=== PATIENT | male | born 1960 | race Caucasian/White ===

== ENCOUNTER 2017-03-09 15:23 | Day surgery (SDC) | payer BC, OTHER ==
[2017-03-09] MEDS ORDERED: MIDAZOLAM 2 MG/2 ML INJ ONE (15:40)
[2017-03-09] MEDS ORDERED: NALOXONE HCL INJ/PF 0.4 MG/1 ML SDV ONE (15:40)
[2017-03-09] MEDS ORDERED: GLUCAGON,HUMAN RECOMB 1 MG INJ ONE (15:41)
[2017-03-09] MEDS ORDERED: EPINEPHRINE INJ 1 MG/10 ML DISP.SYRIN ONE (15:41)
[2017-03-09] MEDS ORDERED: FLUMAZENIL INJ 0.5 MG/5 ML VIAL IV ONE (15:41)
[2017-03-09] MEDS ORDERED: FENTANYL CITRATE INJ/PF 100 MCG/2 ML AMPUL ONE (15:41)
[2017-03-09] MEDS: MIDAZOLAM 2 MG/2 ML INJ ONE ×2 (16:06→16:10)
--- NOTE | 2017-03-09 16:26 | Operative Report ---
Operative Report DATE OF SURGERY: 03/09/17 Operative Report: Pre-op diagnosis: Reflux disease Post-op diagnosis: Esophageal ring and hiatal hernia Surgery: Esophagogastroduodenoscopy with biopsy Medications: Versed 3mg Fentanyl 100 mcg IV push Tissue removed: Antral biopsy for pathology Procedure: After informed consent obtained from patient, the throat was sprayed with Hurricane and conscious sedation was achieved. The upper endoscope was inserted into the esophagus under direct vision and advanced into the stomach. The duodenum was entered and examined to the second part. Endoscope was then slowly pulled out of the patient as the mucosa was examined into details. Patient tolerated procedure well. Findings Esophagus: There was a ring with minimum stenoses just above the small hiatal hernia. The ring was broken with the biopsy forceps Z-line at: 40 cm Antrum: Normal Body: Normal Fundus: Normal Duodenum first part: Normal Duodenum second part: Normal Plan: Await pathology. Continue pantoprazole OPERATION: .
--- NOTE | 2017-03-09 16:26 | PDOC DISCHARGE SUMMARY ---
Discharge Summary (SDC) - Discharge Final Diagnosis: Esophageal ring and hiatal hernia Date of Surgery: 03/09/17 Condition: Stable Treatment or Instructions: No new medications Discharge Diet: As Tolerated Discharge Activity: Activity As Tolerated Report the Following to Your Physician Immediately: Vomiting, Increase in Pain, Swelling, Warmth
[2017-03-09 17:24] VITALS: BP 140/89
== END 2017-03-09 17:20 | disposition home or self-care (01) ==
LOC: END 15:23
PROVIDERS: ATTEND Internal Medicine Gastroenterology
PROC: 0DB68ZX Excision of Stomach, Via Natural or Artificial Opening Endoscopic, Diagnostic (ICD-10-PCS; principal; 2017-03-09 15:30)
DX: K31.9 Disease of stomach and duodenum, unspecified (principal); K44.9 Diaphragmatic hernia without obstruction or gangrene; K22.2 Esophageal obstruction; K21.9 Gastro-esophageal reflux disease without esophagitis; I10 Essential (primary) hypertension; E11.9 Type 2 diabetes mellitus without complications
CPT/HCPCS: 43239; 82962; 88342 ×2; 88305 ×2; J2250; J3010; J0171; J1610; J2310; J3490

== ENCOUNTER → 2017-07-22 | Outpatient (CLI) | payer BC ==
--- NOTE | 2017-07-22 09:40 | RADIOLOGY REPORT (SQ) ---
EXAM DESCRIPTION: CT CHEST WITHOUT COMPLETED DATE/TIME: 07/22/2017 8:26 am REASON FOR STUDY: PULMONARY INFILTRATE (R91.8) R91.8 OTHER NONSPECIFIC ABNORMAL FINDING OF LUNG FIE LD COMPARISON: Chest film 12/15/2013 CT abdomen and pelvis [facility] 04/17/2009 TECHNIQUE: CT scan performed of the chest without intravenous contrast. Images reviewed with lung, soft tissue and bone windows. Reconstructed coronal and sagittal MPR images reviewed. All images st ored on PACS. All CT scanners at this facility use dose modulation, iterative reconstruction, and/or weight based d osing when appropriate to reduce radiation dose to as low as reasonably achievable (ALARA). [facility]: Dose Right [facility]: CareDose [facility]: Dose Right [facility]: Teradose 4D [facility]: Smart [employer] RADIATION DOSE: Up-to-date CT equipment and radiation dose reduction techniques were employed. CTDIv ol: 9.1 mGy. DLP: 376 mGy-cm. mGy. LIMITATIONS: No technical limitations. FINDINGS: LUNGS AND PLEURA: There is minimal lingular bandlike scarring on coronal image 34 through 38. A 6 mm focus of pleural thickening along the right minor fissure is present on axial image 60 and cor onal image 32, of doubtful clinical significance. No fluffy alveolar infiltrates worrisome for edema or pneumonia. No pleural effusions or pneumothorax. HILAR AND MEDIASTINAL STRUCTURES: No identified masses or abnormal nodes. No obvious aneurysm. HEART AND VASCULAR STRUCTURES: No aneurysm. No pericardial effusion. UPPER ABDOMEN: Multiple tiny less than 1 cm cysts are present in the liver, unchanged from CT 04/17/20 09 THYROID AND OTHER SOFT TISSUES: No masses. No adenopathy. BONES: No significant finding. HARDWARE: None in the chest. OTHER: No other significant findings. IMPRESSION: NO SIGNIFICANT FINDING ON NON-CONTRASTED CHEST CT. TECHNICAL DOCUMENTATION: JOB ID: [id number] Quality ID # [id number]: Final reports with documentation of one or more dose reduction techniques (e.g., Au tomated exposure control, adjustment of the mA and/or kV according to patient size, use of iterative reconstruction technique) 2010 [employer]- All Rights Reserved
== END ==
LOC: RAD 08:15
PROVIDERS: ATTEND Internal Medicine Critical Care Medicine
DX: K20.9 Esophagitis, unspecified (principal); Z98.84 Bariatric surgery status; R91.8 Other nonspecific abnormal finding of lung field
CPT/HCPCS: 71250

== ENCOUNTER 2019-08-31 08:38 | Observation (INO) | payer BC, OTHER ==
[2019-08-31 09:11] LABS: ABSOLUTE BASOPHILS # (AUTO) 0.1 10^3/uL (0.0-0.2); ABSOLUTE EOSINOPHILS # (AUTO) 0.1 10^3/uL (0.0-0.6); ABSOLUTE LYMPHOCYTES (AUTO) 1.1 10^3/uL (0.5-4.7); ABSOLUTE MONOCYTES (AUTO) 0.7 10^3/uL (0.1-1.4); ABSOLUTE NEUT (AUTO) 4.6 10^3/uL (1.7-8.2); BASOPHILS % (AUTO) 1.2 % (0-2); EOSINOPHILS % (AUTO) 1.5 % (0-6); HEMOGLOBIN 15.8 g/dL (13.5-17.0); LYMPHOCYTES % (AUTO) 16.8 % (13-45); MEAN CORPUSCULAR HEMOGLOBIN 30.4 pg (27.0-33.4); MEAN CORPUSCULAR HGB CONC 33.5 g/dL (32.0-36.0); MEAN CORPUSCULAR VOLUME 91 fl (80-97); PLATELET COUNT 223 10^3/uL (150-450); RED CELL DISTRIBUTION WIDTH 14.2 % (11.5-14.0); SEGMENTED NEUTROPHILS % (AUTO) 69.5 % (42-78); TOTAL CELLS COUNTED % (AUTO) 100 %; WHITE BLOOD COUNT 6.7 10^3/uL (4.0-10.5)
[2019-08-31 09:17] LABS: ALBUMIN 4.5 g/dL (3.5-5.0); ALKALINE PHOSPHATASE 75 U/L (38-126); ANION GAP 10 (5-19); ASPARTATE AMINO TRANSFERASE 24 U/L (17-59); BILIRUBIN,DIRECT 0.1 mg/dL (0.0-0.4); BILIRUBIN,TOTAL 0.5 mg/dL (0.2-1.3); BLOOD UREA NITROGEN 15 mg/dL (7-20); CALCIUM 9.9 mg/dL (8.4-10.2); CARBON DIOXIDE 25 mmol/L (22-30); CHLORIDE 101 mmol/L (98-107); CREATINE KINASE 102 U/L (55-170); GLUCOSE 106 mg/dL (75-110); POTASSIUM 4.5 mmol/L (3.6-5.0); TOTAL PROTEIN 7.6 g/dL (6.3-8.2)
[2019-08-31 09:27] LABS: CREATINE KINASE MB 1.75 ng/mL (<4.55)
[2019-08-31 09:35] LABS: TROPONIN I < 0.012 ng/mL
--- NOTE | 2019-08-31 09:38 | ER Document Report ---
ED Cardiac - General Chief Complaint: Chest Pain Stated Complaint: CHEST PAIN Time Seen by Provider: 08/31/19 09:35 TRAVEL OUTSIDE OF THE [place] IN LAST 30 DAYS: No - HPI Notes: 59-year-old male presents with approximately 2-hour history of chest pain 6/10 squeezing in nature without radiation associated profound weakness and nausea. She denies shortness of breath. Patient still having chest pain at this time. Patient denies any history of coronary artery disease. Has been seen in the emergency department in the past for chest pain. Had a negative stress test about two year ago. - Related Data Allergies/Adverse Reactions: Shellfish * [Shellfish] Allergy (Verified 03/09/17 15:46) Hives Past Medical History - Social History Smoking Status: Current Every Day Smoker Frequency of alcohol use: None Drug Abuse: None Family History: CAD - Father had heart problems in his early 40s, 2 brothers have each had MIs starting at the age of 38. Patient has suicidal ideation: No Patient has homicidal ideation: No - Past Medical History Cardiac Medical History: Reports: Hx Hypertension Denies: Hx Coronary Artery Disease, Hx Heart Attack Pulmonary Medical History: Reports: Hx Pneumonia - HX Denies: Hx Asthma, Hx Bronchitis, Hx COPD, Hx Tuberculosis Neurological Medical History: Denies: Hx Cerebrovascular Accident, Hx Seizures Endocrine Medical History: Reports: Hx Diabetes Mellitus Type 2 GI Medical History: Reports: Hx Gastroesophageal Reflux Disease Musculoskeletal Medical History: Reports Hx Arthritis Psychiatric Medical History: Denies: Hx Depression - Immunizations Hx Diphtheria, Pertussis, Tetanus Vaccination: No Review of Systems - Review of Systems Notes: REVIEW OF SYSTEMS: CONSTITUTIONAL: -fevers, -chills EENT: -eye pain, -difficulty swallowing, -nasal congestion CARDIOVASCULAR: positive chest pain, -syncope. RESPIRATORY: -cough, -SOB GASTROINTESTINAL: -abdominal pain, -nausea, -vomiting, -diarrhea GENITOURINARY: -dysuria, -hematuria MUSCULOSKELETAL: -back pain, -neck pain SKIN: -rash or skin lesions. HEMATOLOGIC: -easy bruising or bleeding. LYMPHATIC: -swollen, enlarged glands. NEUROLOGICAL: -altered mental status or loss of consciousness, -headache, - neurologic symptoms PSYCHIATRIC: -anxiety, -depression. ALL OTHER SYSTEMS REVIEWED AND NEGATIVE. Physical Exam - Vital signs Vitals: Resp Pulse Ox 22 H 96 08/31/19 08:44 08/31/19 08:44 - Notes Notes: PHYSICAL EXAMINATION: GENERAL: Well-appearing, well-nourished and in no acute distress. HEAD: Atraumatic, normocephalic. EYES: Pupils equal round and reactive to light, extraocular movements intact, sclera anicteric, conjunctiva are normal. ENT: nares patent, oropharynx clear without exudates. Moist mucous membranes. NECK: Normal range of motion, supple without lymphadenopathy LUNGS: Breath sounds clear to auscultation bilaterally and equal. No wheezes rales or rhonchi. HEART: Regular rate and rhythm without murmurs ABDOMEN: Soft, nontender, normoactive bowel sounds. No guarding, no rebound. No masses appreciated. EXTREMITIES: Normal range of motion, no pitting or edema. No cyanosis. NEUROLOGICAL: Cranial nerves grossly intact. Normal speech, normal gait. Normal sensory and motor exams. PSYCH: Normal mood, normal affect. SKIN: Warm, Dry, normal turgor, no rashes or lesions noted. Course - Re-evaluation Re-evalutation: 08/31/19 09:47 59-year-old man presents with concerning story of chest pain. Patient initial lab work-up unremarkable times troponin negative. EKG is right bundle branch block but no ischemic changes. Patient given aspirin, nitroglycerin for his sym ptoms. Feeling improved at this time. Patient will be admitted to the hospital for further evaluation of chest pain. - Vital Signs Vital signs: Temp Pulse Resp BP Pulse Ox 98.4 F 65 18 109/65 95 08/31/19 15:31 08/31/19 15:31 08/31/19 15:31 08/31/19 15:31 08/31/19 15:31 - Laboratory Result Diagrams: 08/31/19 08:22 08/31/19 08:22 Laboratory results interpreted by me: 08/31/19 08/31/19 08:22 08:22 RDW 14.2 H Sodium 136.2 L - EKG Interpretation by Me Additional EKG results interpreted by me: 08/31/19 09:36 Normal sinus rhythm 89 bpm, normal MI, normal QRS, right bundle branch block, no ST elevations or depressions. Discharge - Discharge Clinical Impression: Chest pain Qualifiers: Chest pain type: unspecified Qualified Code(s): R07.9 - Chest pain, unspecified Condition: Stable Disposition: ADMITTED INPATIENT Admitting Provider: toma tay Unit Admitted: Telemetry
[2019-08-31] MEDS ORDERED: NITROGLYCERIN 0.4 MG/TAB 25 TAB/BOTTLE SL PRN ×2 (09:42→11:57)
[2019-08-31] MEDS ORDERED: ASPIRIN 81 MG TABLET, CHEWABLE PO ONE (09:42)
--- NOTE | 2019-08-31 10:35 | RADIOLOGY REPORT (SQ) ---
EXAM DESCRIPTION: CHEST 2 VIEWS COMPLETED DATE/TIME: 08/31/2019 10:06 am REASON FOR STUDY: chest pain COMPARISON: AP chest 12/15/2013 CT chest 07/22/2017 EXAM PARAMETERS: NUMBER OF VIEWS: two views TECHNIQUE: Digital Frontal and Lateral radiographic views of the chest acquired. RADIATION DOSE: NA LIMITATIONS: none FINDINGS: LUNGS AND PLEURA: No opacities, masses or pneumothorax. No pleural effusion. MEDIASTINUM AND HILAR STRUCTURES: No masses or contour abnormalities. HEART AND VASCULAR STRUCTURES: Heart normal size. No evidence for failure. BONES: No acute findings. HARDWARE: None in the chest. OTHER: No other significant finding. IMPRESSION: NO ACUTE RADIOGRAPHIC FINDING IN THE CHEST. TECHNICAL DOCUMENTATION: JOB ID: [id number] [email or web address]- All Rights Reserved Reading location - IP/workstation name: [email or web address]
[2019-08-31] MEDS ORDERED: ONDANSETRON HCL INJ/PF 4 MG/2 ML SDV IV PRN (11:57)
[2019-08-31] MEDS ORDERED: MAG HYDROX/AL HYDROX/SIMETH SUSP 30 ML UDCUP PO PRN (11:57)
[2019-08-31] MEDS ORDERED: DEXTROSE 50%-WATER 25 GM/50 ML DISP.SYRIN IV PRN ×2 (11:57)
[2019-08-31] MEDS ORDERED: ACETAMINOPHEN 325 MG TABLET PO PRN (11:57)
[2019-08-31] MEDS ORDERED: GLUCAGON,HUMAN RECOMB 1 MG INJ SUBCUT PRN (11:57)
[2019-08-31] MEDS ORDERED: DEXTROSE 40% GEL 15 GM TUBE PO PRN ×2 (11:57)
--- NOTE | 2019-08-31 13:06 | EKG REPORT ---
SEVERITY:- ABNORMAL ECG - SINUS RHYTHM RBBB AND LAFB LEFT VENTRICULAR HYPERTROPHY : Confirmed by: Owen Cardona MD 31-Aug-2019 13:05:22
--- NOTE | 2019-08-31 13:29 | PDOC H&P ---
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 Patient reports that he completed his shift and went home. After approximately 2 hours of discomfort, he called EMS and upon administration of nitroglycerin and aspirin felt immediate relief of his disc omfort. He does report that he had similar pain approximately 3 years ago when he underwent nuclear stress testing and cardiac catheterization at [facility]. He and his believe they were told that he did have vessel disease but did not require stents. 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 Evaluation in the emergency department reveals stable vital signs, normal CBC, n ormal chemistry, initial negative troponin, benign chest x-ray, and EKG demonstrating RBBB with LVH (unchanged from prior EKGs). He is referred to the hospitalist service for admission for chest pain rule out. Past Medical History Cardiac Medical History: Reports: Hyperlipidema, Hypertension Denies: Congestive Heart Failure, Coronary Artery Disease, Myocardial Infarction Pulmonary Medical History: Reports: Pneumonia Denies: Asthma, Bronchitis, Chronic Obstructive Pulmonary Disease (COPD), Tuberculosis EENT Medical History: Reports: None Neurological Medical History: Denies: Ischemic CVA, Seizures Endocrine Medical History: Reports: Diabetes Mellitus Type 2 Denies: Hypothyroidism Renal/ Medical History: Reports: None Malignancy Medical History: Reports: None GI Medical History: Reports: Gastroesophageal Reflux Disease Musculoskeltal Medical History: Reports: Arthritis Psychiatric Medical History: Reports: Tobacco Dependency Denies: Depression Hematology: Denies: Anemia Infectious Medical History: Reports: None Past Surgical History Past Surgical History: Reports: Cardiac Catheterization Social History Information Source: Patient Lives with: Spouse/Significant other Smoking Status: Current Every Day Smoker Cigarettes Packs Per Day: 1 Frequency of Alcohol Use: None Hx Recreational Drug Use: No Drugs: None Hx Prescription Drug Abuse: No - Advance Directive Resuscitation Status: Full Code Family History Family History: CAD - Father had heart problems in his early 40s, 2 brothers have each had MIs starting at the age of 38. Parental Family History Reviewed: Yes Children Family History Reviewed: Yes Sibling(s) Family History Reviewed.: Yes Medication/Allergy Home Medications: Hydrochlorothiazide [Hydrodiuril 25 mg Tablet] 25 mg PO DAILY 08/31/19 Metformin HCl [Glucophage 500 mg Tablet] 500 mg PO DAILY 08/31/19 Pantoprazole Sodium [Protonix [address] Tablet] 40 mg PO DAILY 08/31/19 Allergies/Adverse Reactions: Shellfish * [Shellfish] Allergy (Verified 03/09/17 15:46) Hives Review of Systems Constitutional: ABSENT: chills, fever(s), headache(s), weight gain, weight loss Eyes: ABSENT: visual disturbances Ears: ABSENT: hearing changes Cardiovascular: PRESENT: as per HPI, chest pain. ABSENT: dyspnea on exertion, edema, orthropnea, palpitations Respiratory: ABSENT: cough, hemoptysis Gastrointestinal: PRESENT: nausea. ABSENT: abdominal pain, constipation, diarrhea, hematemesis, hematochezia, vomiting Genitourinary: ABSENT: dysuria, hematuria Musculoskeletal: ABSENT: joint swelling Integumentary: ABSENT: rash, wounds Neurological: ABSENT: abnormal gait, abnormal speech, confusion, dizziness, focal weakness, syncope Psychiatric: ABSENT: anxiety, depression, homidical ideation, suicidal ideation Endocrine: ABSENT: cold intolerance, heat intolerance, polydipsia, polyuria Hematologic/Lymphatic: ABSENT: easy bleeding, easy bruising Physical Exam Vital Signs: Temp Pulse Resp BP Pulse Ox 98.1 F 20 116/77 93 08/31/19 08:46 08/31/19 09:01 08/31/19 09:01 08/31/19 09:10 Intake & Output 08/30/19 08/31/19 09/01/19 06:59 06:59 06:59 Weight 82.1 kg General appearance: PRESENT: no acute distress, cooperative, well-developed, well-nourished - overweight Head exam: PRESENT: atraumatic, normocephalic Eye exam: PRESENT: conjunctiva pink, EOMI, PERRLA. ABSENT: scleral icterus Ear exam: PRESENT: normal external ear exam Mouth exam: PRESENT: moist, tongue midline Neck exam: ABSENT: carotid bruit, JVD, lymphadenopathy, thyromegaly Respiratory exam: PRESENT: clear to auscultation yamila, symmetrical, unlabored. ABSENT: rales, rhonchi, wheezes Cardiovascular exam: PRESENT: RRR, +S1, +S2. ABSENT: diastolic murmur, rubs, systolic murmur Pulses: PRESENT: normal dorsalis pedis pul Vascular exam: PRESENT: normal capillary refill GI/Abdominal exam: PRESENT: normal bowel sounds, soft. ABSENT: distended, guarding, mass, organolmegaly, rebound, tenderness Rectal exam: PRESENT: deferred Extremities exam: PRESENT: full ROM. ABSENT: calf tenderness, clubbing, pedal edema Musculoskeletal exam: PRESENT: ambulatory Neurological exam: PRESENT: alert, awake, oriented to person, oriented to place, oriented to time, oriented to situation, CN II-XII grossly intact. ABSENT: motor sensory deficit Psychiatric exam: PRESENT: appropriate affect, normal mood. ABSENT: homicidal ideation, suicidal ideation Skin exam: PRESENT: dry, intact, warm. ABSENT: cyanosis, rash Results Laboratory Results: 08/31/19 08:22 08/31/19 08:22 08/31/19 08/31/19 08:22 08:22 WBC 6.7 RBC 5.20 Hgb 15.8 Hct 47.0 MCV 91 MCH 30.4 MCHC 33.5 RDW 14.2 H Plt Count 223 Seg Neutrophils % 69.5 Sodium 136.2 L Potassium 4.5 Chloride 101 Carbon Dioxide 25 Anion Gap 10 BUN 15 Creatinine 0.89 Est GFR ( Amer) > 60 Glucose 106 Calcium 9.9 Total Bilirubin 0.5 AST 24 Alkaline Phosphatase 75 Total Protein 7.6 Albumin 4.5 08/31/19 08/31/19 08:22 08:22 Creatine Kinase 102 CK-MB (CK-2) 1.75 Troponin I < 0.012 Impressions: Chest X-Ray 08/31/19 09:37 IMPRESSION: NO ACUTE RADIOGRAPHIC FINDING IN THE CHEST. Assessment and Plan - Diagnosis (1) Chest pain Qualifiers: Chest pain type: unspecified Qualified Code(s): R07.9 - Chest pain, unspecified Is this a current diagnosis for this admission?: Yes Plan: Patient presents w/ chest pain and multiple risk factors. Nuclear stress test and cardiac cath 3 years ago at [facility]; will request cath report. Chest x-ray is benign. EKG demonstrates RBBB with LVH; unchanged from prior EKGs. Initial troponin is negative. Patient is admitted to the medical floor and continuous cardiac telemetry. Continue daily aspirin and statin therapy. Full dose Lovenox. PPI We will continue to trend troponins. Check hemoglobin A1c and lipid panel with a.m. lab work. Nuclear stress test in the morning. Cardiac diet. (2) HTN (hypertension) Qualifiers: Hypertension type: essential hypertension Qualified Code(s): I10 - Essential (primary) hypertension Is this a current diagnosis for this admission?: Yes Plan: Continue home dose HCTZ. Cardiac diet. (3) HLD (hyperlipidemia) Is this a current diagnosis for this admission?: Yes Plan: Daily statin therapy. Check lipid panel w/ AM lab work. Cardiac diet. (4) Prediabetes Is this a current diagnosis for this admission?: Yes Plan: Patient reports pre-diabetic. Managed with Metformin. Holding oral antidiabetic medications while admitted. Accu-Cheks before meals and at bedtime with sliding scale insulin. Diabetic diet. We will check A1c with a.m. lab work. (5) Tobacco abuse Is this a current diagnosis for this admission?: Yes Plan: Smoking cessation encouraged. Nicotine replacement therapies provided. - Time Time Spent with patient: 35 or more minutes Smoking Cessation Education: 3 to 10 minutes Medications reviewed and adjusted accordingly: Yes Anticipated discharge: Home Within: within 24 hours
[2019-08-31] MEDS: INSULIN REG, HUMAN 100 UNIT/ML 3 ML VIAL (PYX) SUBCUT SCH ×2 (17:02→22:34)
[2019-08-31] MEDS ORDERED: ATORVASTATIN CALCIUM 80 MG TABLET PO SCH (22:00)
[2019-08-31] MEDS: ENOXAPARIN SODIUM INJ 100 MG/1 ML DISP.SYRIN SUBCUT SCH (22:38)
[2019-09-01 02:41] LABS: HEMATOCRIT 46.2 % (37.9-51.0); HEMOGLOBIN 15.4 g/dL (13.5-17.0); MEAN CORPUSCULAR HEMOGLOBIN 30.6 pg (27.0-33.4); MEAN CORPUSCULAR HGB CONC 33.4 g/dL (32.0-36.0); MEAN CORPUSCULAR VOLUME 92 fl (80-97); PLATELET COUNT 188 10^3/uL (150-450); RED BLOOD COUNT 5.05 10^6/uL (4.35-5.55); WHITE BLOOD COUNT 5.8 10^3/uL (4.0-10.5)
[2019-09-01 02:57] LABS: ANION GAP 7 (5-19); BLOOD UREA NITROGEN 20 mg/dL (7-20); CALCIUM 9.1 mg/dL (8.4-10.2); CARBON DIOXIDE 26 mmol/L (22-30); CHLORIDE 104 mmol/L (98-107); GLUCOSE 105 mg/dL (75-110); POTASSIUM 4.5 mmol/L (3.6-5.0)
[2019-09-01 05:21] LABS: CHOLESTEROL 143.89 mg/dL (0-200); TRIGLYCERIDES 71 mg/dL (<150)
[2019-09-01 05:33] LABS: DIRECT LDL 111 mg/dL (<100)
[2019-09-01] MEDS: INSULIN REG, HUMAN 100 UNIT/ML 3 ML VIAL (PYX) SUBCUT SCH ×2 (09:35→11:31)
[2019-09-01] MEDS ORDERED: PANTOPRAZOLE SODIUM 20 MG TABLET.DR PO SCH (10:00)
[2019-09-01] MEDS ORDERED: HYDROCHLOROTHIAZIDE 25 MG TABLET PO SCH (10:00)
[2019-09-01] MEDS ORDERED: NICOTINE 21 MG/24 HR PATCH.TD24 TD SCH (10:00)
[2019-09-01] MEDS ORDERED: PANTOPRAZOLE SODIUM 40 MG TABLET.DR PO SCH (10:00)
[2019-09-01] MEDS ORDERED: ASPIRIN 81 MG TABLET, ENT COATED PO SCH (10:00)
[2019-09-01] MEDS: ENOXAPARIN SODIUM INJ 100 MG/1 ML DISP.SYRIN SUBCUT SCH (10:21)
[2019-09-01] MEDS ORDERED: REGADENOSON INJ 0.4 MG/5 ML DISP.SYRIN IV ONE (12:20)
[2019-09-01 15:21] VITALS: BP 124/74
[2019-09-01 15:51] LABS: APPEARANCE,URINE CLEAR; BILIRUBIN,URINE NEGATIVE (NEGATIVE); COLOR,URINE YELLOW; GLUCOSE, URINE NEGATIVE (NEGATIVE); KETONES,URINE NEGATIVE (NEGATIVE); LEUKOCYTE ESTERASE,URINE NEGATIVE (NEGATIVE); NITRITE,URINE NEGATIVE (NEGATIVE); PROTEIN,URINE NEGATIVE (NEGATIVE); URINE SPECIFIC GRAVITY 1.021; UROBILINOGEN,URINE NEGATIVE mg/dL (<2.0)
--- NOTE | 2019-09-01 18:23 | PDOC DISCHARGE SUMMARY ---
Impression - Admit/DC Date/PCP Admission Date/Primary Care Provider: 08/31/19 10:08 TITA STEWARD PA-C Discharge Date: 09/01/19 - Discharge Diagnosis (1) Chest pain Is this a current diagnosis for this admission?: Yes (2) HTN (hypertension) Is this a current diagnosis for this admission?: Yes (3) HLD (hyperlipidemia) Is this a current diagnosis for this admission?: Yes (4) Prediabetes Is this a current diagnosis for this admission?: Yes (5) Tobacco abuse Is this a current diagnosis for this admission?: Yes - Additional Information Resuscitation Status: Full Code Discharge Diet: Cardiac, Diabetic Discharge Activity: Activity As Tolerated, Balance Activity w/Rest Referrals: MAGDA JOYCE [NO LOCAL MD] - 09/07/19 3:30 pm Prescriptions: Aspirin [Ecotrin 81 mg EC Tablet] 81 mg PO DAILY #90 tabec Nicotine [Nicoderm 21 mg/24 Hr Transderm Patch] 1 each TD DAILY #30 patch.td24 Home Medications: Hydrochlorothiazide [Hydrodiuril 25 mg Tablet] 25 mg PO DAILY 08/31/19 Metformin HCl [Glucophage 500 mg Tablet] 500 mg PO DAILY 08/31/19 Pantoprazole Sodium [Protonix [address] Tablet] 40 mg PO DAILY 08/31/19 Acetaminophen [Tylenol 325 mg Tablet] 650 mg PO Q4HP PRN tablet 09/01/19 Aspirin [Ecotrin 81 mg EC Tablet] 81 mg PO DAILY #90 tabec 09/01/19 Nicotine [Nicoderm 21 mg/24 Hr Transderm Patch] 1 each TD DAILY #30 patch.td24 09/01/19 History of Present Illiness History of Present Illness: MITCHELL DUKES is a 59 year old male with a past medical history of hypertension, hyperlipidemia, GERD, prediabetes, prostate cancer, and tobacco dependence with continuous use who presented to the emergency department with a complaint of 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 Patient reports that he completed his shift and went home. After approximately 2 hours of discomfort, he called EMS and upon administration of nitroglycerin and aspirin felt immediate relief of his discomfort. He does report that he had similar pain approximately 3 years ago when he underwent nuclear stress testing and cardiac catheterization at [facility]. He and his believe they were told that he did have vessel disease but did not require stents. 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 Evaluation in the emergency department reveals stable vital signs, normal CBC, normal chemistry, initial negative troponin, benign chest x-ray, and EKG demonstrating RBBB with LVH (unchanged from prior EKGs). He is referred to the hospitalist service for admission for chest pain rule out. Hospital Course Hospital Course: The patient was admitted to the medical floor and continuous cardiac telemetry. He remained in normal sinus rhythm overnight. The patient denied additional episodes of chest pain. Serial troponins were negative. Chest x-ray was benign. EKG demonstrated right bundle branch block with LVH; unchanged from prior EKGs. A1c was reassuring at 6.0%. Lipid panel was acceptable. Received call from cardiology; nuclear stress test was negative. At time of dictation formalize report is pending. Pending negative cardiac work-up, patient was placed on full dose Lovenox but he does not require chronic anticoagulation at discharge. Patient was started on daily aspirin therapy. He is encouraged to continue dietary and lifestyle modifications; he was not started on statin therapy. The patient's home medication regiment for hypertension and prediabetes was continued. Smoking cessation was strongly encouraged and nicotine replacement therapies were provided. At time of discharge, the patient was in stable condition, asymptomatic, and requesting to be discharged home. He is advised to follow-up with his primary care provider within 1 week. He is instructed to continue his Daily aspirin and home dose metformin, hydrochlorothiazide, and Protonix. He is encouraged to return to the emergency department as needed for concerning symptoms. Physical Exam Vital Signs: Temp Pulse Resp BP Pulse Ox 97.7 F 73 18 124/74 99 09/01/19 15:20 09/01/19 15:20 09/01/19 15:20 09/01/19 15:20 09/01/19 15:20 Intake & Output 08/31/19 09/01/19 09/02/19 06:59 06:59 06:59 Intake Total 0 681 Balance 0 681 Weight 78.2 kg General appearance: PRESENT: no acute distress, cooperative, well-developed, well-nourished - Overweight Head exam: PRESENT: atraumatic, normocephalic Eye exam: PRESENT: conjunctiva pink, EOMI, PERRLA. ABSENT: scleral icterus Ear exam: PRESENT: normal external ear exam Mouth exam: PRESENT: moist, tongue midline Neck exam: ABSENT: carotid bruit, JVD, lymphadenopathy, thyromegaly Respiratory exam: PRESENT: clear to auscultation yamila, symmetrical, unlabored. ABSENT: rales, rhonchi, wheezes Cardiovascular exam: PRESENT: RRR, +S1, +S2. ABSENT: diastolic murmur, rubs, systolic murmur Pulses: PRESENT: normal dorsalis pedis pul Vascular exam: PRESENT: normal capillary refill GI/Abdominal exam: PRESENT: normal bowel sounds, soft. ABSENT: distended, guarding, mass, organolmegaly, rebound, tenderness Rectal exam: PRESENT: deferred Extremities exam: PRESENT: full ROM. ABSENT: calf tenderness, clubbing, pedal edema Musculoskeletal exam: PRESENT: ambulatory Neurological exam: PRESENT: alert, awake, oriented to person, oriented to place, oriented to time, oriented to situation, CN II-XII grossly intact. ABSENT: motor sensory deficit Psychiatric exam: PRESENT: appropriate affect, normal mood. ABSENT: homicidal ideation, suicidal ideation Skin exam: PRESENT: dry, intact, warm. ABSENT: cyanosis, rash Results Laboratory Results: WBC 5.8 10^3/uL (4.0-10.5) 09/01/19 02:21 RBC 5.05 10^6/uL (4.35-5.55) 09/01/19 02:21 Hgb 15.4 g/dL (13.5-17.0) 09/01/19 02:21 Hct 46.2 % (37.9-51.0) 09/01/19 02:21 MCV 92 fl (80-97) 09/01/19 02:21 MCH 30.6 pg (27.0-33.4) 09/01/19 02:21 MCHC 33.4 g/dL (32.0-36.0) 09/01/19 02:21 RDW 14.0 % (11.5-14.0) 09/01/19 02:21 Plt Count 188 10^3/uL (150-450) 09/01/19 02:21 Lymph % (Auto) 16.8 % (13-45) 08/31/19 08:22 [place] % (Auto) 11.0 % (3-13) 08/31/19 08:22 Eos % (Auto) 1.5 % (0-6) 08/31/19 08:22 Baso % (Auto) 1.2 % (0-2) 08/31/19 08:22 Absolute Neuts (auto) 4.6 10^3/uL (1.7-8.2) 08/31/19 08:22 Absolute Lymphs (auto) 1.1 10^3/uL (0.5-4.7) 08/31/19 08:22 Absolute Monos (auto) 0.7 10^3/uL (0.1-1.4) 08/31/19 08:22 Absolute Eos (auto) 0.1 10^3/uL (0.0-0.6) 08/31/19 08:22 Absolute Basos (auto) 0.1 10^3/uL (0.0-0.2) 08/31/19 08:22 Seg Neutrophils % 69.5 % (42-78) 08/31/19 08:22 Sodium 137.1 mmol/L (137-145) 09/01/19 02:21 Potassium 4.5 mmol/L (3.6-5.0) 09/01/19 02:21 Chloride 104 mmol/L (98-107) 09/01/19 02:21 Carbon Dioxide 26 mmol/L (22-30) 09/01/19 02:21 Anion Gap 7 (5-19) 09/01/19 02:21 BUN 20 mg/dL (7-20) 09/01/19 02:21 Creatinine 0.90 mg/dL (0.52-1.25) 09/01/19 02:21 Est GFR ( Amer) > 60 (>60) 09/01/19 02:21 Est GFR (MDRD) Non-Af > 60 (>60) 09/01/19 02:21 Glucose 105 mg/dL (75-110) 09/01/19 02:21 POC Glucose 102 mg/dL (70-110) 09/01/19 11:02 Hemoglobin A1c % 6.0 % (4.7-6.0) 09/01/19 02:21 Calcium 9.1 mg/dL (8.4-10.2) 09/01/19 02:21 Total Bilirubin 0.5 mg/dL (0.2-1.3) 08/31/19 08:22 Direct Bilirubin 0.1 mg/dL (0.0-0.4) 08/31/19 08:22 Neonat Total Bilirubin Not Reportable 08/31/19 08:22 Neonat Direct Bilirubin Not Reportable 08/31/19 08:22 Neonat Indirect Bili Not Reportable 08/31/19 08:22 AST 24 U/L (17-59) 08/31/19 08:22 ALT 18 U/L (<50) 08/31/19 08:22 Alkaline Phosphatase 75 U/L (38-126) 08/31/19 08:22 Creatine Kinase 102 U/L (55-170) 08/31/19 08:22 CK-MB (CK-2) 1.75 ng/mL (<4.55) 08/31/19 08:22 Troponin I < 0.012 ng/mL 09/01/19 02:21 Total Protein 7.6 g/dL (6.3-8.2) 08/31/19 08:22 Albumin 4.5 g/dL (3.5-5.0) 08/31/19 08:22 Triglycerides 71 mg/dL (<150) 09/01/19 02:21 Cholesterol 143.89 mg/dL (0-200) 09/01/19 02:21 LDL Cholesterol Direct 111 mg/dL (<100) H 09/01/19 02:21 VLDL Cholesterol 14.0 mg/dL (10-31) 09/01/19 02:21 HDL Cholesterol 34 mg/dL (>40) L 09/01/19 02:21 Urine Color YELLOW 08/31/19 22:53 Urine Appearance CLEAR 08/31/19 22:53 Urine pH 6.0 (5.0-9.0) 08/31/19 22:53 Ur Specific [place] 1.021 08/31/19 22:53 Urine Protein NEGATIVE mg/dL (NEGATIVE) 08/31/19 22:53 Urine Glucose (UA) NEGATIVE mg/dL (NEGATIVE) 08/31/19 22:53 Urine Ketones NEGATIVE mg/dL (NEGATIVE) 08/31/19 22:53 Urine Blood NEGATIVE (NEGATIVE) 08/31/19 22:53 Urine Nitrite NEGATIVE (NEGATIVE) 08/31/19 22:53 Urine Bilirubin NEGATIVE (NEGATIVE) 08/31/19 22:53 Urine Urobilinogen NEGATIVE mg/dL (<2.0) 08/31/19 22:53 Ur Leukocyte Esterase NEGATIVE (NEGATIVE) 08/31/19 22:53 Urine WBC (Auto) 2 /HPF 08/31/19 22:53 Urine RBC (Auto) 1 /HPF 08/31/19 22:53 Urine Mucus (Auto) RARE /LPF 08/31/19 22:53 Urine Ascorbic Acid NEGATIVE (NEGATIVE) 08/31/19 22:53 08/31/19 08/31/19 08/31/19 08:22 14:15 20:20 CK-MB (CK-2) 1.75 Troponin I < 0.012 < 0.012 < 0.012 09/01/19 02:21 CK-MB (CK-2) Troponin I < 0.012 Impressions: Chest X-Ray 08/31/19 09:37 IMPRESSION: NO ACUTE RADIOGRAPHIC FINDING IN THE CHEST. Plan Plan of Treatment: The patient is advised to follow-up with his primary care provider within 1 we ek. He is instructed to take medications as prescribed. He is strongly encouraged to stop smoking. He is reminded to eat a low-sodium/low-fat diet. He is encouraged to return to the emergency department as needed for concerning symptoms. Time Spent: Greater than 30 Minutes Stroke Is this a Stroke Patient?: No Acute Heart Failure - Is this a Heart Failure Patient?: No
--- NOTE | 2019-09-04 23:32 | DRAGON STRESS TEST REPORT ---
Intravenous Lexiscan Cardiolite stress test using single photon emmision computerized tomography. Date of procedure: 09/01/2019. Ordering Provider: Ms. Linda Gresham NP, [facility]. Patient's status: In Patient. Indication: Chest pain. Coronary risk factors: Age, diabetes mellitus, hypertension, dyslipidemia, tobacco abuse disorder, and family history of coronary artery disease. Resting EKG: Sinus Rhythm. Right bundle branch block pattern. Stress EKG: No changes of ischemia. No chest pain or discomfort, and there were no arrhythmias seen. Reason for termination: Protocol. Conclusions: Normal EKG and hemodynamic response to IV Lexiscan. Nuclear data: At rest the patient was given 12.87 millicuries of technetium 99m sestamibi injected intravenously. As per protocol rest non gated SPECT images were obtained. Subsequently the patient was given intravenous Lexiscan at a dose of 0.4 mg in 5 mL intravenously, followed by flush with normal saline. Subsequently the stress dose of 37.5 millicuries of technetium 99m sestamibi was injected intravenously. As per protocol stress gated images were obtained. Nuclear interpretation: Review of images showed that all segments of the myocardium had normal perfusion at rest, and normal perfusion post stress with IV Lexiscan. All segments of the myocardium had normal motion, contraction, and thickening by gated study. T. I D. ratio was normal at 1.06. There is no transient ischemic dilatation of the left ventricle. Computer read rest, and stress left ventricular ejection fraction were normal at 60 %, and 58 %, respectively. . Conclusion: 1. There is no scintigraphic evidence of Lexiscan induced myocardial ischemia. 2. There is no scintigraphic evidence of myocardial infarction/scar. Recommendations: Aggressive risk factor modification, and treating the underlying co- morbidities. MTDD
== END 2019-09-01 16:00 | disposition home or self-care (01) ==
LOC: ER 08:38 → INTOOBSV 10:08 → EH 10:08 → 4N 12:02
PROVIDERS: ADMIT Family Medicine; ATTEND Family Medicine
PROC: HZ31ZZZ Individual Counseling for Substance Abuse Treatment, Behavioral (ICD-10-PCS; principal; 2019-08-31)
DX: R07.89 Other chest pain (principal); I10 Essential (primary) hypertension; E78.5 Hyperlipidemia, unspecified; R73.03 Prediabetes; R42 Dizziness and giddiness; R11.0 Nausea; R61 Generalized hyperhidrosis; F17.210 Nicotine dependence, cigarettes, uncomplicated; I45.10 Unspecified right bundle-branch block; Z85.46 Personal history of malignant neoplasm of prostate; Z82.49 Family history of ischemic heart disease and other diseases of the circulatory system; Z79.82 Long term (current) use of aspirin; Z79.899 Other long term (current) drug therapy
CPT/HCPCS: 93005; 99285; 36415 ×2; 82553; 82962 ×2; 82550; 85025; 85027; 80048; 80053; 81001; 84484 ×2; 83036; 80061; 93017; 71046; 78452; 93010; 99406; G0378 ×2; A9500; J2785; J3490 ×3; J1650; Q9969

== ENCOUNTER 2019-11-24 19:05 | Emergency (ER) | payer BC, OTHER ==
--- NOTE | 2019-11-24 19:54 | ER Document Report ---
ED General - General Chief Complaint: Groin Pain Stated Complaint: groin pain Time Seen by Provider: 11/24/19 19:23 Primary Care Provider: TITA STEWARD PA-C [Primary Care Provider] - Follow up as needed TRAVEL OUTSIDE OF THE [place] IN LAST 30 DAYS: No - Related Data Allergies/Adverse Reactions: Shellfish * [Shellfish] Allergy (Verified 03/09/17 15:46) Hives Past Medical History - Social History Smoking Status: Unknown if Ever Smoked Family History: CAD - Father had heart problems in his early 40s, 2 brothers have each had MIs starting at the age of 38. Patient has suicidal ideation: No Patient has homicidal ideation: No - Past Medical History Cardiac Medical History: Reports: Hx Hypercholesterolemia, Hx Hypertension Denies: Hx Congestive Heart Failure, Hx Coronary Artery Disease, Hx Heart Attack Pulmonary Medical History: Reports: Hx Pneumonia - HX Denies: Hx Asthma, Hx Bronchitis, Hx COPD, Hx Tuberculosis Neurological Medical History: Denies: Hx Cerebrovascular Accident, Hx Seizures Endocrine Medical History: Reports: Hx Diabetes Mellitus Type 2. Denies: Hx Hypothyroidism GI Medical History: Reports: Hx Gastroesophageal Reflux Disease Musculoskeletal Medical History: Reports Hx Arthritis Psychiatric Medical History: Denies: Hx Depression Past Surgical History: Reports: Hx Cardiac Catheterization - Immunizations Hx Diphtheria, Pertussis, Tetanus Vaccination: No Physical Exam - Vital signs Vitals: Temp Pulse Resp BP Pulse Ox 98.4 F 81 21 H 136/78 H 96 11/24/19 19:14 11/24/19 19:14 11/24/19 19:14 11/24/19 19:14 11/24/19 19:14 - Notes Notes: Patient presents emerge department with acute onset of right lower quadrant pain his groin about 2 hours prior to arrival. Of nausea with this but no vomiting no fevers or diarrhea urinary symptoms. He denies any trauma falls or heavy lifting. Or history of hernia there is no radiation to his back there is no ripping or tearing sensation and no numbness or weakness in his legs. Patient reports he has a history of kidney stones last one was several years ago but this feels somewhat different. Past medical history seen for prediabetes hypertension and previous kidney s tone. Social history he does not smoke and drink Review of systems pertinent positives and negatives in HPI otherwise all the systems were reviewed and acutely negative PHYSICIAN EXAM -vital signs are noted triage note and note from triage reviewed GENERAL: Well-appearing, well-nourished and in __looks uncomfortable____ HEAD: Atraumatic, normocephalic. EYES: Pupils equal round and reactive to light, extraocular movements intact, sclera anicteric, conjunctiva are normal. ENT: nares patent, oropharynx clear without exudates. Moist mucous membranes. NECK: supple without lymphadenopathy LUNGS: Breath sounds clear to auscultation bilaterally and equal. No wheezes rales or rhonchi. HEART: Regular rate and rhythm without murmurs ABDOMEN: Soft, there is no pulsatile masses. Is got good femoral pulses and no radial femoral delay. Is got some moderate tenderness in the right lower quadrant EXTREMITIES: No deformity, no edema. NEUROLOGICAL: No focal neurological deficits. Moves all extremities spontaneously and on command. Good motor strength in the lower extremities PSYCH: Normal mood, normal affect. SKIN: Warm, Dry, normal turgor, no rashes or lesions noted. BACK-nontender in the midline pain with sitting and no CVA tenderness Genitourinary penis without lesions. Both testicles are moderately tender. There is no masses appreciated does have a positive cremasteric reflexes no hernia Differential diagnosis renal colic testicular torsion muscle strain enthesitis appendicitis Course - Re-evaluation Re-evalutation: 11/24/19 23:08 ED patient is remained stable he was given a dose of Dilaudid has been pain-free for over 2 hours. Reevaluate the patient he says has some intermittent twinges of pain but not like before. On exam his abdomen is nontender no pulsatile mass he still has good pulses in his feet and a normal neurological exam Medical decision making patient presents with acute onset of right lower quadrant pain going into his groin this pain is different from his kidney stone with but with the acute onset the patient certainly seems to be consistent with a stone even though there is no evidence on CT. Laboratory studies are unremarkable is feeling better at this point I think he be discharged home this early no evidence of dissection or testicular torsion At this time there is no indication for admission. I have discussed the findings with patient/family with return precautions and follow-up recommendations. Verbal discharge instructions given at the bedside and opportunity for questions given. Medication warnings were given if indicated. Patient is in agreement with this plan and has verbalized understanding of return precautions and the need for primary care follow-up as directed.. - Vital Signs Vital signs: Temp Pulse Resp BP Pulse Ox 98.4 F 81 21 H 136/78 H 96 11/24/19 19:14 11/24/19 19:14 11/24/19 19:14 11/24/19 19:14 11/24/19 19:14 - Laboratory Result Diagrams: 11/24/19 19:42 11/24/19 19:42 Laboratory results interpreted by me: 11/24/19 19:42 WBC 11.6 H RDW 14.5 H Eosinophils % (Manual) 7 H Absolute Eos (Manual) 0.8 H - Diagnostic Test Radiology reviewed: Reports reviewed Discharge - Discharge Clinical Impression: Liver cyst Abdominal pain Qualifiers: Abdominal location: right lower quadrant Qualified Code(s): R10.31 - Right lower quadrant pain Condition: Stable Disposition: HOME, SELF-CARE Instructions: Abdominal Pain ([facility]), Oral Narcotic Medication ([facility]) Additional Instructions: Abdominal Pain There are many causes of abdominal pain. Pain can mean a serious problem requiring surgery (such as appendicitis). It can also be an innocent problem that goes away on its own (such as a viral infection). Often, time must pass to determine the cause of pain. The physician does not feel that hospitalization is necessary, at present. Things may change within the next 24 hours. Call the doctor or come back for re- examination if any problems occur, such as: (1) Pain that becomes more severe, steady, or becomes concentrated in one specific area. Also, pain that is more severe with movement or coughing. (2) Vomiting that persists or becomes more frequent. (3) Blood in the vomitus, urine, or bowel movements. Blood in the stool may have a tarry or black appearance. (4) Shaking chills or fever greater than 100 degrees F. (5) The abdomen becomes more distended or swollen. (6) Bowel movements cease. (7) Failure to improve as expected. Please review the discharge instructions, they will tell you about your disease/injury and what you need to return to the ED for Return to the ED if you feel worse or can follow-up with your family doctor Drink plenty fluids All of the tests that we performed are fairly unremarkable. This is very reassuring however there is a remote possibility that you could have a serious illness that is developing and it is too early for test to show any significant abnormalities. Very important that you follow-up with your family doctor in the next 12 to 24 hours if you are not significantly better and return to emergency department if you get worse The pain medications may cause drowsiness. Be careful if you are using crutches. Do not drive or operate machinery. Do not take Tylenol with the pain medication The CT showed several small cyst in your liver that were not the cause of your pain today. You will need to have a follow-up CT in a month or 2 to make sure these are not getting larger Referrals: TITA STEWARD PA-C [Primary Care Provider] - Follow up as needed
[2019-11-24] MEDS ORDERED: ONDANSETRON HCL INJ/PF 4 MG/2 ML SDV IV ONE (19:56)
[2019-11-24] MEDS ORDERED: HYDROMORPHONE HCL INJ/PF 2 MG/ML AMPULE IV ONE (19:57)
[2019-11-24 20:08] LABS: HEMOGLOBIN 15.2 g/dL (13.5-17.0); MEAN CORPUSCULAR HEMOGLOBIN 31.3 pg (27.0-33.4); MEAN CORPUSCULAR HGB CONC 34.6 g/dL (32.0-36.0); MEAN CORPUSCULAR VOLUME 91 fl (80-97); PLATELET COUNT 185 10^3/uL (150-450); RED BLOOD COUNT 4.87 10^6/uL (4.35-5.55); RED CELL DISTRIBUTION WIDTH 14.5 % (11.5-14.0); WHITE BLOOD COUNT 11.6 10^3/uL (4.0-10.5)
[2019-11-24 20:22] LABS: ALBUMIN 4.2 g/dL (3.5-5.0); ALKALINE PHOSPHATASE 89 U/L (38-126); ANION GAP 10 (5-19); ASPARTATE AMINO TRANSFERASE 25 U/L (17-59); BILIRUBIN,DIRECT 0.3 mg/dL (0.0-0.4); BILIRUBIN,TOTAL 0.3 mg/dL (0.2-1.3); BLOOD UREA NITROGEN 12 mg/dL (7-20); CALCIUM 9.4 mg/dL (8.4-10.2); CARBON DIOXIDE 27 mmol/L (22-30); CHLORIDE 102 mmol/L (98-107); GLUCOSE 97 mg/dL (75-110); POTASSIUM 3.7 mmol/L (3.6-5.0); TOTAL PROTEIN 7.3 g/dL (6.3-8.2)
[2019-11-24 20:33] LABS: ABSOLUTE LYMPHOCYTES# (MANUAL) 2.7 10^3/uL (0.5-4.7); ABSOLUTE MONOCYTES # (MANUAL) 1.3 10^3/uL (0.1-1.4); ANISOCYTOSIS SLIGHT; BASOPHILS % (MANUAL) 0 % (0-2); EOSINOPHILS % (MANUAL) 7 % (0-6); LYMPHOCYTES % (MANUAL) 23 % (13-45); MONOCYTES % (MANUAL) 11 % (3-13); SEGMENTED NEUTROPHILS % (MAN) 59 % (42-78); TOTAL CELLS COUNTED 100
[2019-11-24 20:34] LABS: PLATELET COMMENT ADEQUATE
[2019-11-24 20:35] LABS: APPEARANCE,URINE CLEAR; BILIRUBIN,URINE NEGATIVE (NEGATIVE); COLOR,URINE YELLOW; GLUCOSE, URINE NEGATIVE (NEGATIVE); KETONES,URINE NEGATIVE (NEGATIVE); LEUKOCYTE ESTERASE,URINE NEGATIVE (NEGATIVE); NITRITE,URINE NEGATIVE (NEGATIVE); PROTEIN,URINE NEGATIVE (NEGATIVE); URINE SPECIFIC GRAVITY 1.012; UROBILINOGEN,URINE NEGATIVE mg/dL (<2.0)
--- NOTE | 2019-11-24 21:20 | RADIOLOGY REPORT (SQ) ---
EXAM DESCRIPTION: RadLex: CT ABDOMEN PELVIS WITHOUT IV CONTRAST CLINICAL HISTORY: 59 years Male; Right lower quadrant pain TECHNIQUE: CT of the abdomen and pelvis without contrast. All CT scans at this facility use dose modulation, iterative reconstruction, and/or weight based dosing when appropriate to reduce radiation dose to as low as reasonably achievable. COMPARISON: None. FINDINGS: Abdomen: Liver: There are at least 12-15 scattered hypodense lesions in the liver, all less than 6 mm. These are too small to reliably characterize. No ductal distention. Gallbladder:Nondistended Pancreas:Within normal limits Spleen:Within normal limits Right kidney:No hydronephrosis. No renal or ureteral calculi. Left kidney:No hydronephrosis. No renal or ureteral calculi. Adrenal glands:Within normal limits Vascular structures:Within normal limits (although limited evaluation on noncontrast exam). Pelvis: Small bowel:No significant distention. Appendix:Within normal limits Colon: Several scattered diverticula, but no acute pericolonic edema. No colonic distention. No free intraperitoneal fluid or air. Bones: Degenerative disc changes at L5-S1, with moderate disc space narrowing. No acute bone findings. Bladder: Unremarkable. No pelvic mass or adenopathy. Note that evaluation of the bowel and solid organs is somewhat limited due to lack of intravenous and oral contrast. IMPRESSION: 1. No acute inflammatory changes 2. Appendix is normal 3. No renal or ureteral calculi 4. Multiple small slightly hypodense lesions scattered throughout the liver, incompletely characterized on this exam. If there is clinical concern for malignancy or liver infection, consider MRI liver with and without contrast for more definitive characterization. Otherwise, right upper quadrant ultrasound might be able to confirm that these are cysts.
--- NOTE | 2019-11-24 22:31 | RADIOLOGY REPORT (SQ) ---
EXAM DESCRIPTION: [facility]Lex: US SCROTUM CLINICAL HISTORY: 59 years Male; Testicular pain TECHNIQUE: Witt-scale, color, and spectral Doppler images were obtained of the testes and scrotum. COMPARISON: None FINDINGS: Right testicle: 4.1 x 1.8 x 3 cm. Testicular echogenicity is normal with no focal lesion. Testicular vascular flow is normal. Right epididymis: 0.9 x 0.4 x 0.5 cm with a 3 mm cyst. No hyperemia on Doppler. No hydrocele Left testicle: 3.5 x 1.9 x 3.1 cm. Testicular echogenicity is normal with no focal lesion. Testicular vascular flow is normal. Left epididymis: 0.7 x 0.5 0.7 cm with a 2 mm cyst. Small hydrocele with some internal debris IMPRESSION: 1. No testicular mass or torsion 2. Left hydrocele
[2019-11-24 23:12] VITALS: BP 133/87
[2019-11-24] MEDS ORDERED: HYDROCODONE/ACETAMINOPHEN 5-325 MG (6 TAB/ER DISP) PO PRN (23:13)
[2019-11-24] MEDS ORDERED: ONDANSETRON ODT 4 MG TAB (6 TAB/ER DISP) PO PRN (23:13)
== END 2019-11-24 23:25 | disposition home or self-care (01) ==
LOC: ER 19:05
DX: K76.89 Other specified diseases of liver (principal); R10.31 Right lower quadrant pain; R10.30 Lower abdominal pain, unspecified; I10 Essential (primary) hypertension; E11.9 Type 2 diabetes mellitus without complications
CPT/HCPCS: 99284; 96374; 96375; 36415; 83690; 85025; 80053; 81001; 76870; 93976; 74176; J1170; J2405

== ENCOUNTER 2020-03-15 17:39 | Emergency (ER) | payer BC ==
--- NOTE | 2020-03-15 18:05 | ER Document Report ---
ED Respiratory Problem - General Chief Complaint: Shortness Of Breath Stated Complaint: SHORTNESS OF BREATH Time Seen by Provider: 03/15/20 18:04 Primary Care Provider: TITA STEWARD PA-C [Primary Care Provider] - Follow up as needed Mode of Arrival: Ambulatory Information source: Patient Notes: 60-year-old male past medical history significant for hypertension, diabetes, reflux presents to the emergency room after noticing chest pain with shortness of breath after getting out of the shower early this morning. States his symptoms started around 8 AM. States his symptoms lasted approximately 2 hours went away without intervention. Did not take any medications for his symptoms. Patient denies any recent travel, no history of DVTs or PEs. Denies fevers. P atient states he saw his primary care physician earlier this afternoon and was referred to the emergency room for further evaluation. States he still having chest pain but states that shortness of breath resolved earlier this morning and has not returned. Positive family history for cardiac disease. TRAVEL OUTSIDE OF THE [place] IN LAST 30 DAYS: No - HPI Patient complains to provider of: Chest pain, Short of breath Onset: This morning Severity: Mild - Related Data Allergies/Adverse Reactions: Shellfish * [Shellfish] Allergy (Verified 03/15/20 17:55) Hives Past Medical History - General Information source: Patient - Social History Smoking Status: Current Every Day Smoker Cigarette use (# per day): Yes - pack per day Smoking Education Provided: Yes Frequency of alcohol use: None Drug Abuse: None Family History: CAD - Father had heart problems in his early 40s, 2 brothers have each had MIs starting at the age of 38. - Past Medical History Cardiac Medical History: Reports: Hx Hypercholesterolemia, Hx Hypertension Denies: Hx Congestive Heart Failure, Hx Coronary Artery Disease, Hx Heart Attack Pulmonary Medical History: Reports: Hx Pneumonia - HX Denies: Hx Asthma, Hx Bronchitis, Hx COPD, Hx Tuberculosis Neurological Medical History: Denies: Hx Cerebrovascular Accident, Hx Seizures Endocrine Medical History: Reports: Hx Diabetes Mellitus Type 2. Denies: Hx Hypothyroidism GI Medical History: Reports: Hx Gastroesophageal Reflux Disease Musculoskeletal Medical History: Reports Hx Arthritis Psychiatric Medical History: Denies: Hx Depression Past Surgical History: Reports: Hx Cardiac Catheterization - Immunizations Hx Diphtheria, Pertussis, Tetanus Vaccination: No Review of Systems - Review of Systems Constitutional: See HPI EENT: No symptoms reported Cardiovascular: Chest pain, Dyspnea Respiratory: Short of breath Gastrointestinal: No symptoms reported Genitourinary: No symptoms reported Musculoskeletal: No symptoms reported Skin: No symptoms reported Neurological/Psychological: No symptoms reported -: Yes All other systems reviewed and negative Physical Exam - Vital signs Vitals: Temp Pulse Resp BP Pulse Ox 98.8 F 88 18 135/89 H 96 03/15/20 17:58 03/15/20 17:58 03/15/20 17:58 03/15/20 17:58 03/15/20 17:58 - General General appearance: Appears well, Alert In distress: Mild - HEENT Head: Normocephalic, Atraumatic Neck: Normal, Supple - Respiratory Respiratory status: No respiratory distress Chest status: Nontender Breath sounds: Normal Chest palpation: Normal - Cardiovascular Rhythm: Other - pac's noted Heart sounds: Normal auscultation Murmur: No Friction rub: No Gallop: None auscultated Normal capillary refill: Yes - Abdominal Inspection: Normal Distension: No distension Bowel sounds: Normal Tenderness: Nontender Organomegaly: No organomegaly - Extremities General upper extremity: Normal inspection, Nontender, Normal color, Normal ROM, Normal temperature General lower extremity: Normal inspection, Nontender, Normal color, Normal ROM, Normal temperature, Normal weight bearing. No: Scott's sign - Neurological Neuro grossly intact: Yes Cognition: Normal Orientation: AAOx4 [place] Coma Scale Eye Opening: Spontaneous [place] Coma Scale Verbal: Oriented [place] Coma Scale Motor: Obeys Commands [place] Coma Scale Total: 15 Speech: Normal Motor strength normal: LUE, RUE, LLE, RLE Sensory: Normal - Skin Skin Temperature: Warm Skin Moisture: Dry Skin Color: Normal Course - Re-evaluation Re-evalutation: 03/15/20 2100 2100 Patient told nurse that he wanted to leave against medical advice went to talk to Patient to discuss reason for leaving AMA. Patient had already left prior to me discussing AMA reasons and counseling patient. 03/15/20 21:44 - Vital Signs Vital signs: Temp Pulse Resp BP Pulse Ox 98.8 F 88 18 135/89 H 96 03/15/20 17:58 03/15/20 17:58 03/15/20 17:58 03/15/20 17:58 03/15/20 17:58 - Laboratory Result Diagrams: 03/15/20 18:27 03/15/20 18:27 Laboratory results interpreted by me: 03/15/20 03/15/20 18:27 18:27 Hgb 17.2 H RDW 14.6 H Creatine Kinase 35 L - EKG Interpretation by Me Rate: Normal Rhythm: NSR [place]/QRS: RBBB, LAHB/LAFB When compared to previous EKG there are: No significant change - 69 Discharge - Discharge Clinical Impression: Chest pain, Eloped from emergency department Disposition: HOME, SELF-CARE Referrals: TITA STEWARD PA-C [Primary Care Provider] - Follow up as needed
[2020-03-15 18:13] VITALS: BP 135/89
[2020-03-15] MEDS ORDERED: ASPIRIN 81 MG TABLET, CHEWABLE PO ONE (18:38)
--- NOTE | 2020-03-15 19:12 | RADIOLOGY REPORT (SQ) ---
EXAM DESCRIPTION: CHEST SINGLE VIEW IMAGES COMPLETED DATE/TIME: 03/15/2020 6:55 pm REASON FOR STUDY: chest pain COMPARISON: 08/31/2019. NUMBER OF VIEWS: One view. TECHNIQUE: Single frontal radiographic view of the chest acquired. LIMITATIONS: None. FINDINGS: LUNGS AND PLEURA: No opacities, masses or pneumothorax. No pleural effusion. MEDIASTINUM AND HILAR STRUCTURES: No masses. Contour normal. HEART AND VASCULAR STRUCTURES: Heart normal in size. Normal vasculature. BONES: No acute findings. HARDWARE: None in the chest. OTHER: No other significant finding. IMPRESSION: NO SIGNIFICANT RADIOGRAPHIC FINDING IN THE CHEST. TECHNICAL DOCUMENTATION: JOB ID: [id number] 2010 [employer]- All Rights Reserved Reading location - IP/workstation name: [email or web address]
[2020-03-15 19:25] LABS: ABSOLUTE BASOPHILS # (AUTO) 0.1 10^3/uL (0.0-0.2); ABSOLUTE EOSINOPHILS # (AUTO) 0.1 10^3/uL (0.0-0.6); ABSOLUTE LYMPHOCYTES (AUTO) 1.2 10^3/uL (0.5-4.7); ABSOLUTE MONOCYTES (AUTO) 0.9 10^3/uL (0.1-1.4); ABSOLUTE NEUT (AUTO) 5.4 10^3/uL (1.7-8.2); BASOPHILS % (AUTO) 0.9 % (0-2); EOSINOPHILS % (AUTO) 1.9 % (0-6); HEMATOCRIT 49.8 % (37.9-51.0); HEMOGLOBIN 17.2 g/dL (13.5-17.0); LYMPHOCYTES % (AUTO) 15.8 % (13-45); MEAN CORPUSCULAR HEMOGLOBIN 31.5 pg (27.0-33.4); MEAN CORPUSCULAR HGB CONC 34.7 g/dL (32.0-36.0); MEAN CORPUSCULAR VOLUME 91 fl (80-97); MONOCYTES % (AUTO) 11.7 % (3-13); PLATELET COUNT 218 10^3/uL (150-450); RED BLOOD COUNT 5.48 10^6/uL (4.35-5.55); RED CELL DISTRIBUTION WIDTH 14.6 % (11.5-14.0); SEGMENTED NEUTROPHILS % (AUTO) 69.7 % (42-78); TOTAL CELLS COUNTED % (AUTO) 100 %; WHITE BLOOD COUNT 7.7 10^3/uL (4.0-10.5)
[2020-03-15 19:41] LABS: ALBUMIN 4.5 g/dL (3.5-5.0); ALKALINE PHOSPHATASE 85 U/L (38-126); ANION GAP 10 (5-19); ASPARTATE AMINO TRANSFERASE 21 U/L (17-59); BILIRUBIN,TOTAL 0.3 mg/dL (0.2-1.3); BLOOD UREA NITROGEN 17 mg/dL (7-20); CALCIUM 9.8 mg/dL (8.4-10.2); CARBON DIOXIDE 27 mmol/L (22-30); CHLORIDE 101 mmol/L (98-107); CREATINE KINASE 35 U/L (55-170); GLUCOSE 93 mg/dL (75-110); POTASSIUM 4.6 mmol/L (3.6-5.0); TOTAL PROTEIN 7.6 g/dL (6.3-8.2)
[2020-03-15 19:53] LABS: CREATINE KINASE MB 0.55 ng/mL (<4.55); NT PRO BNP 28 pg/mL (<125)
[2020-03-15 19:54] LABS: TROPONIN I < 0.012 ng/mL
--- NOTE | 2020-03-17 10:34 | EKG REPORT ---
SEVERITY:- ABNORMAL ECG - SINUS RHYTHM MULTIPLE ATRIAL PREMATURE COMPLEXES PROBABLE LEFT ATRIAL ABNORMALITY RBBB AND LAFB BIVENTRICULAR HYPERTROPHY : Confirmed by: Guero Anton 17-Mar-2020 10:33:12
== END 2020-03-15 20:56 | disposition home or self-care (01) ==
LOC: ER 17:39
DX: R07.9 Chest pain, unspecified (principal); R06.02 Shortness of breath; F17.210 Nicotine dependence, cigarettes, uncomplicated; I10 Essential (primary) hypertension; E11.9 Type 2 diabetes mellitus without complications; E78.00 Pure hypercholesterolemia, unspecified; Z91.013 Allergy to seafood
CPT/HCPCS: 36415; 71045; 80053; 82550; 82553; 83880; 84484; 85025; 93005; 93010; 99285

== ENCOUNTER 2020-07-17 04:42 | Emergency (ER) | payer BC ==
[2020-07-17] MEDS ORDERED: MORPHINE SULFATE 10 MG/ML INJ IV ONE (05:09)
[2020-07-17] MEDS ORDERED: ONDANSETRON HCL INJ/PF 4 MG/2 ML SDV IV ONE (05:09)
--- NOTE | 2020-07-17 05:11 | ER Document Report ---
ED General - General Chief Complaint: Shortness Of Breath Stated Complaint: SHORTNESS OF BREATH/BODY PAIN Time Seen by Provider: 07/17/20 05:01 Notes: Patient is a 60-year-old male that comes to the emergency department for chief complaint of pain in his epigastric area that radiates into his back and into the bottom of his chest. Patient states the pain started just prior to arrival and is very sharp intermittently. When the pain is sharp he reports some shortness of breath with the pain. He denies nausea, vomiting, dizziness, shortness of breath, cough, fever/chills, injury. He smokes, denies frequent alcohol, denies recreational drugs, denies any abdominal surgeries. Past medical history of hypertension, type 2 diabetes, GERD, and "chronic chest pain". Patient states that he has had 5 stress test and they were all normal, he states his chest hurts all the time but he is gotten used to it and he states he has been told it was normal. TRAVEL OUTSIDE OF THE [place] IN LAST 30 DAYS: No - Related Data Allergies/Adverse Reactions: Shellfish * [Shellfish] Allergy (Verified 03/15/20 17:55) Hives Past Medical History - General Information source: Patient - Social History Smoking Status: Current Every Day Smoker Frequency of alcohol use: Occasional Drug Abuse: None Lives with: Alone Family History: CAD - Father had heart problems in his early 40s, 2 brothers have each had MIs starting at the age of 38. - Past Medical History Cardiac Medical History: Reports: Hx Hypercholesterolemia, Hx Hypertension Denies: Hx Congestive Heart Failure, Hx Coronary Artery Disease, Hx Heart Attack Pulmonary Medical History: Reports: Hx Pneumonia - HX Denies: Hx Asthma, Hx Bronchitis, Hx COPD, Hx Tuberculosis Neurological Medical History: Denies: Hx Cerebrovascular Accident, Hx Seizures Endocrine Medical History: Reports: Hx Diabetes Mellitus Type 2. Denies: Hx Hypothyroidism GI Medical History: Reports: Hx Gastroesophageal Reflux Disease Musculoskeletal Medical History: Reports Hx Arthritis Psychiatric Medical History: Denies: Hx Depression Past Surgical History: Reports: Hx Cardiac Catheterization Review of Systems - Review of Systems Constitutional: No symptoms reported EENT: No symptoms reported Cardiovascular: See HPI Respiratory: No symptoms reported Gastrointestinal: See HPI Genitourinary: No symptoms reported Male Genitourinary: No symptoms reported Musculoskeletal: No symptoms reported Skin: No symptoms reported Hematologic/Lymphatic: No symptoms reported Neurological/Psychological: No symptoms reported Physical Exam - Vital signs Vitals: Temp 98.0 F 07/17/20 04:54 - Notes Notes: GENERAL: Patient appears mildly uncomfortable but not in severe distress. He is alert and cooperative. HEAD: Normocephalic, atraumatic. EYES: Pupils equal, round, and reactive to light. Extraocular movements intact. ENT: Oral mucosa moist, tongue midline. Oropharynx unremarkable. Airway patent. NECK: Full range of motion. Supple. Trachea midline. No lymphadenopathy. LUNGS: Clear to auscultation bilaterally, no wheezes, rales, or rhonchi. No respiratory distress. Non-tender chest wall. HEART: Regular rate and rhythm. No murmur ABDOMEN: Epigastric tenderness, no specific tenderness in the right upper quadrant, left upper quadrant, and no lower abdominal tenderness. No guarding or rigidity. Bowel sounds present. EXTREMITIES: Moves all 4 extremities spontaneously. No edema, normal radial and dorsalis pedis pulses bilaterally. No cyanosis. BACK: no cervical, thoracic, lumbar midline tenderness. No saddle anesthesia, normal distal neurovascular exam. Moves all extremities in full range of motion. NEUROLOGICAL: Alert and oriented x3. Normal speech. Cranial nerves II through XII grossly intact. Strength 5/5 in all extremities. PSYCH: Normal affect, normal mood. SKIN: Warm, dry, normal turgor. No rashes or lesions noted. Course - Re-evaluation Re-evalutation: Patient appears mildly uncomfortable, he points to his epigastric area as the location of pain and states he feels some intermittent radiation to the back. He does not indicate specific chest pain. Vital signs unremarkable. Work-up pending. CBC unremarkable, chemistry unremarkable, lipase unremarkable, chest x-ray unremarkable, EKG without noted change. Urine and ultrasound are pending. Patient comfortable and with no complaints on reevaluation. 07/17/20 07:59 Ultrasound shows no acute finding. Small cysts are noted in the liver, no concerning findings. I reevaluated patient. He is comfortable with no complaints. Patient still has some mild tenderness in the epigastric area. Patient now tells me that he has a history of peptic ulcer disease and he is supposed to be following up with Dr. Lewis, he states he is not taking anything for ulcer/gastritis. This is my strongest suspicion based on his work-up, area of pain, and history. Patient will be treated for gastritis/esophagitis, discussed follow-up, return precautions in detail. Patient states appreciation and agreement. Pending second troponin, if this is negative patient will be discharged with these prescriptions and plan. - Vital Signs Vital signs: Temp Pulse Resp BP Pulse Ox 98.0 F 69 17 137/85 H 98 07/17/20 09:47 07/17/20 09:47 07/17/20 09:47 07/17/20 09:47 07/17/20 09:47 - Laboratory Result Diagrams: 07/17/20 05:20 07/17/20 05:20 Laboratory results interpreted by me: 07/17/20 05:20 RDW 14.2 H - EKG Interpretation by Me Additional EKG results interpreted by me: EKG shows sinus rhythm at a rate of 78, right bundle branch block and left anterior fascicular block, left ventricular hypertrophy. No T wave inversions or ST segment changes in consecutive leads. No significant change from prior. Discharge - Discharge Clinical Impression: Epigastric pain Disposition: HOME, SELF-CARE Additional Instructions: Your work-up does not show any concerning findings at this time. You do have some cysts in your liver which are small but no concerning findings are seen. I suspect your symptoms are coming from inflammation of your upper gastrointestinal tract, you may be developing peptic ulcers again. If needed take Zofran for nausea, take Carafate and Pepcid as prescribed to help treat this, you can take additional Rolaids, Tums, Maalox, etc. if needed. You can take Tylenol for pain. Avoid NSAIDs, alcohol, smoking, caffeine, spicy food. Start with clear fluids, progress to bland diet. Follow-up with Dr. Lewis as planned for additional evaluation and treatment. Return if you worsen including uncontrolled vomiting, vomiting blood, black stools, severe pain, fever of 100.4 or greater, or any other concerning or worsening symptoms. Prescriptions: Sucralfate [Carafate 1 gm Tablet] 1 gm PO QID #20 tablet Famotidine [Pepcid 20 mg Tablet] 20 mg PO BID #20 tablet Ondansetron [Zofran Odt 4 mg Tablet] 1 - 2 tab PO Q4H PRN #15 tab.rapdis PRN Reason: For Nausea/Vomiting Forms: Return to Work
[2020-07-17 05:44] LABS: ABSOLUTE BASOPHILS # (AUTO) 0.1 10^3/uL (0.0-0.2); ABSOLUTE EOSINOPHILS # (AUTO) 0.2 10^3/uL (0.0-0.6); ABSOLUTE LYMPHOCYTES (AUTO) 0.9 10^3/uL (0.5-4.7); ABSOLUTE MONOCYTES (AUTO) 0.8 10^3/uL (0.1-1.4); ABSOLUTE NEUT (AUTO) 4.7 10^3/uL (1.7-8.2); BASOPHILS % (AUTO) 1.1 % (0-2); EOSINOPHILS % (AUTO) 2.9 % (0-6); HEMATOCRIT 47.6 % (37.9-51.0); HEMOGLOBIN 16.2 g/dL (13.5-17.0); MEAN CORPUSCULAR HEMOGLOBIN 31.2 pg (27.0-33.4); MEAN CORPUSCULAR HGB CONC 34.1 g/dL (32.0-36.0); MEAN CORPUSCULAR VOLUME 92 fl (80-97); MONOCYTES % (AUTO) 12.6 % (3-13); PLATELET COUNT 215 10^3/uL (150-450); RED CELL DISTRIBUTION WIDTH 14.2 % (11.5-14.0); SEGMENTED NEUTROPHILS % (AUTO) 69.4 % (42-78); TOTAL CELLS COUNTED % (AUTO) 100 %; WHITE BLOOD COUNT 6.7 10^3/uL (4.0-10.5)
--- NOTE | 2020-07-17 05:44 | RADIOLOGY REPORT (SQ) ---
CHEST X-RAY 1 VIEW on 07/17/2020 at 5:24 AM CLINICAL INDICATION: Chest pain COMPARISON: 03/15/2020 FINDINGS: The lungs are clear. Mild vascular calcification is noted in the aorta. Cardiac, hilar and mediastinal contours are within normal limits. Pulmonary vascularity is within normal limits. No bony abnormality is noted. IMPRESSION: No active disease.
[2020-07-17 06:03] LABS: ALBUMIN 4.2 g/dL (3.5-5.0); ALKALINE PHOSPHATASE 81 U/L (38-126); ANION GAP 10 (5-19); ASPARTATE AMINO TRANSFERASE 20 U/L (17-59); BILIRUBIN,DIRECT 0.3 mg/dL (0.0-0.4); BILIRUBIN,TOTAL 0.4 mg/dL (0.2-1.3); BLOOD UREA NITROGEN 17 mg/dL (7-20); CALCIUM 9.3 mg/dL (8.4-10.2); CARBON DIOXIDE 27 mmol/L (22-30); CHLORIDE 104 mmol/L (98-107); GLUCOSE 109 mg/dL (75-110); TOTAL PROTEIN 7.2 g/dL (6.3-8.2)
--- NOTE | 2020-07-17 07:51 | RADIOLOGY REPORT (SQ) ---
EXAM: US Abdomen Limited, Right Upper Quadrant EXAM DATE/TIME: 07/17/2020 7:02 AM CLINICAL HISTORY: The patient is 60 years old and is Male; epigastric pain TECHNIQUE: Real-time ultrasound of the right upper quadrant with image documentation. COMPARISON: CT abdomen pelvis from 11/24/2019 FINDINGS: LIMITATIONS: Suboptimal exam secondary to bowel gas. LIVER: The liver measures 16.0 cm in diameter. There are a few tiny cysts noted in the liver, measuring up to 1.1 cm in diameter. Otherwise, the liver is diffusely increased in echogenicity suggesting fatty infiltration. No intrahepatic biliary ductal dilatation. Hepatopetal flow is demonstrated in the portal vein. GALLBLADDER: The gallbladder is unremarkable. There are no gallstones. No gallbladder wall thickening or pericholecystic fluid. The agricultural research technologist reported a negative Ahumada's sign when the gallbladder was palpated with the ultrasound transducer. COMMON BILE DUCT: No obvious choledocholithiasis. The common bile duct measures 2 mm. PANCREAS: The pancreas is echogenic. No obvious pancreatic mass. No pancreatic ductal dilatation. RIGHT KIDNEY: The right kidney measures 9.4 cm in length. No solid or cystic renal mass visualized. No obvious intrarenal stone. No hydronephrosis. AORTA: The visualized abdominal aorta is normal in caliber. INFERIOR VENA CAVA: The IVC is unremarkable as visualized. IMPRESSION: No acute findings visualized.
[2020-07-17 09:21] LABS: APPEARANCE,URINE CLEAR; BILIRUBIN,URINE NEGATIVE (NEGATIVE); COLOR,URINE YELLOW; GLUCOSE, URINE NEGATIVE (NEGATIVE); KETONES,URINE NEGATIVE (NEGATIVE); LEUKOCYTE ESTERASE,URINE NEGATIVE (NEGATIVE); NITRITE,URINE NEGATIVE (NEGATIVE); PROTEIN,URINE NEGATIVE (NEGATIVE); URINE SPECIFIC GRAVITY 1.018; UROBILINOGEN,URINE NEGATIVE mg/dL (<2.0)
[2020-07-17 09:48] VITALS: BP 137/85
--- NOTE | 2020-07-17 10:27 | EKG REPORT ---
SEVERITY:- ABNORMAL ECG - SINUS RHYTHM RBBB AND LAFB LEFT VENTRICULAR HYPERTROPHY : Confirmed by: Gwendolyn Coats MD 17-Jul-2020 10:26:33
== END 2020-07-17 09:48 | disposition home or self-care (01) ==
LOC: ER 04:42
DX: R10.13 Epigastric pain (principal); R10.816 Epigastric abdominal tenderness; M54.9 Dorsalgia, unspecified; R06.02 Shortness of breath; K76.89 Other specified diseases of liver; I45.2 Bifascicular block; F17.200 Nicotine dependence, unspecified, uncomplicated; I10 Essential (primary) hypertension; E11.9 Type 2 diabetes mellitus without complications; Z87.01 Personal history of pneumonia (recurrent); Z87.11 Personal history of peptic ulcer disease; Z91.013 Allergy to seafood; Z82.49 Family history of ischemic heart disease and other diseases of the circulatory system
CPT/HCPCS: 93005; 99285; 96374; 96375; 36415; 83690; 85025; 80053; 81001; 84484; 71045; 76705; 93010; J2270; J2405